=== PATIENT | female | born 1975 | race Asian ===

== ENCOUNTER 2022-06-09 12:45 | Emergency (ER) | payer OTHER ==
[~2022-06-09] VITALS: Ht 152.4 cm; Wt 59.0 kg
--- NOTE | 2022-06-09 13:15 | NUR ---
ER at bedside examining patient.
--- NOTE | 2022-06-09 13:20 | NUR ---
Patient to ER bed 06 to gown for evaluation. Side rails up.
[2022-06-09 13:30] VITALS: BP_SYST 160
--- NOTE | 2022-06-09 13:30 | NUR ---
Pt on monitor. Son present at bedside. Pt c/o chest pressure since 2am and states that it is hard to breathe. Pt also admits to having 20% hearing capacity to left ear and 60% to Right ear after having covid shot a month ago.
--- NOTE | 2022-06-09 14:00 | NUR ---
Patient is a 46-year-old female presents emergency department with 1 day history of constant, moderate, chest tightness with associated nonproductive cough. Patient states that she was diagnosed with COVID 1 month ago. Patient denies any nausea, vomiting, fever, or chills.
[2022-06-09 14:08] LABS: BASOPHILS # (AUTO) 0.1 K/uL (0.0-0.2); BASOPHILS % (AUTO) 1.1 % (0.0-2.0); EOSINOPHILS # (AUTO) 0.1 K/uL (0.0-0.4); EOSINOPHILS % (AUTO) 2.4 % (0.0-4.0); HEMATOCRIT 34.1 % (36-48); HEMOGLOBIN 11.2 g/dL (12.0-16.0); LYMPHOCYTES # (AUTO) 1.9 K/uL (1.0-5.5); LYMPHOCYTES % (AUTO) 32.7 % (20.5-51.5); MEAN CORPUSCULAR HEMOGLOBIN 26 pg (27-31); MEAN CORPUSCULAR HGB CONC 33 % (32-36); MEAN CORPUSCULAR VOLUME 80 fL (79.0-98.0); MONOCYTES # (AUTO) 0.6 K/uL (0.0-1.0); NEUTROPHILS # (AUTO) 3.1 K/uL (1.8-7.7); NEUTROPHILS % (AUTO) 53.8 % (40.0-70.0); PLATELET COUNT (AUTO) 238 K/uL (130-430); RED BLOOD CELL COUNT(AUTO) 4.25 MIL/uL (4.2-6.2); RED CELL DISTRIBUTION WIDTH 16.1 % (9.0-15.0); WHITE BLOOD COUNT (AUTO) 5.8 K/uL (4.8-10.8)
[2022-06-09 14:46] LABS: ANION GAP 9 (5-15); CALCIUM 8.8 mg/dL (8.4-11.0); CHLORIDE 108 mmol/L (98-107); CREATININE 0.69 mg/dL (0.55-1.30); GLUCOSE 102 mg/dL (70-99); UREA NITROGEN, BLOOD 9 mg/dL (8-21)
[2022-06-09 14:48] LABS: PROTHROMBIN TIME 10.1 SECS (9.5-12.5)
[2022-06-09 14:50] LABS: GFR AFRICAN AMERICAN 117 mL/min (>90)
[2022-06-09 14:55] LABS: ALANINE AMINOTRANSFERASE 9 U/L (12-78); ALBUMIN 3.8 g/dL (3.4-4.8); ASPARTATE AMINOTRANSFERASE 17 U/L (10-37); TOTAL BILIRUBIN 0.4 mg/dL (0.0-1.0)
[2022-06-09] MEDS ORDERED: PSEU30TA36 PO (15:05)
[2022-06-09] MEDS ORDERED: ALBMDI INH (15:05)
--- NOTE | 2022-06-09 15:20 | NUR ---
Patient given written and verbal discharge instructions and verbalizes understanding. ER MD discussed with patient the results and treatment provided. Patient in stable condition. ID arm band removed. Rx of sudafed and albuterol given. Patient educated on pain management and to follow up with PMd. Opportunity for questions provided and answered. Medication side effect fact sheet provided.
[2022-06-09 15:24] VITALS: BP_SYST 139
== END 2022-06-09 15:20 | disposition home or self-care (01) ==
LOC: SED 12:45
DX: R07.81 Pleurodynia (principal); J40 Bronchitis, not specified as acute or chronic; R05.9 Cough, unspecified; R07.9 Chest pain, unspecified; Z79.899 Other long term (current) drug therapy
CPT/HCPCS: 36415; 71045; 80053; 83880; 84484; 84703; 85025; 85379; 85610-TC; 85730-TC; 93005; 99285